=== PATIENT | male | born 1965 | race Caucasian/White ===

== ENCOUNTER 2016-04-22 08:41 | Emergency (ER) | payer OTHER ==
[~2016-04-22] VITALS: Ht 172.7 cm; Wt 77.3 kg
--- NOTE | 2016-04-22 09:14 | ED.REPORT ---
HPI-General Illness Date of Service Apr 22, 2016 ED Provider: Carol Ann Wolfe MD 50 y/o male with history of hypertension and coronary artery disease s/p coronary stents reports to the ED with tingling in his left arm and lightheadedness onset 2 days ago. Pt reports working outdoors and being light- headed most of yesterday. Pt's recorded his blood pressure at 88/48 and 88/ 52 yesterday. Pt was previously prescribed medications for hypertension, but his manufacturing process engineer recommended that he stop taking these. He is not currently on medications for BP. Pt currently takes Lipitor and baby aspirin. Pt denies fever , cough, chest pain, SOB or edema. Pt describes his symptom as being similar to a previous heart attack. Nursing Notes Stated Complaint: LIGHT HEADED, TINGLING IN LEFT HAND Chief Complaint: Dysrhythmia/Cardiac Nursing Notes Reviewed: Yes Allergies: Coded Allergies: Penicillins (Verified Allergy, Intermediate, 04/22/16) General Time Seen by MD: 09:12 Chief Complaint Dizziness Hx Obtained From: Patient, Spouse Arrived By: Walk-in Onset Occurred: 2 days ago Symptom Duration: Since onset Severity: Current: No pain currently Associated with: Denies: Chest pain, Shortness of breath Pertinent Negative: Relieved by nothing Similar Sx Previous: Yes Past Medical History Past Medical History Reports: Coronary artery disease, Hyperlipidemia, Hypertension Past Surgical History Reports: Angioplasty Smoking History Light Tobacco Smoker Social History Alcohol Use: "Social" Other Social History: Review of Systems Full Review of Systems Constitutional: Denies: Chills, Fever Respiratory: Denies: Non-productive cough, Shortness of breath Cardiovascular: Denies: Chest pain, Edema Musculoskeletal: Denies: Extremity pain Neurologic: Reports: Dizziness, Lightheaded, Numbness Complete sys rev & neg: except as marked. Physical Exam Vital Signs Vital Signs Date Time Temp Pulse Resp B/P Pulse Ox O2 Delivery O2 Flow Rate FiO2 04/22/16 10:25 57 15 113/73 99 Room Air Initial VS: Reviewed General/Constitutional: Well-developed, Well-nourished Head / Eyes: Atraumatic, Normocephalic, PERRL ENT: Mucous membranes moist, Conjunctiva normal, No scleral icterus Neck: Supple, Non-tender, Full range of motion Respiratory: Breath sounds normal, Clear to auscultation, No respiratory distress Cardiovascular: Regular rate & rhythm, Heart sounds normal, Intact distal pulses Abdomen / GI: Soft, Non-tender, No guarding, No rebound, No distention Extremities: Vascular intact, Neuro intact, No swelling, No tenderness Skin: Warm, Dry, No cyanosis Neurologic: Alert, Oriented, Nonfocal Psychiatric: Mood/affect normal, Behavior normal, Normal thought content Interpretation & Diagnostics Lab Results Interpretation Result Diagram: 04/22/16 0900 04/22/16 0900 Test 04/22/16 09:00 04/22/16 09:07 White Blood Count 9.0th/mm3 (3.8-10.1) Red Blood Count 4.78mil/mm3 (4.40-5.80) Hemoglobin 15.2g/dL (13.8-17.2) Hematocrit 45.2% (41.0-50.0) Mean Corpuscular Volume 94.6fL (81-100) Mean Corpuscular Hemoglobin 31.8pg (27.0-35.0) Mean Corpuscular Hemoglobin Concent 33.6% (32.0-37.0) Red Cell Distribution Width 12.0% (12.3-15.4) Platelet Count 196bil/L (150-400) Neutrophils (%) (Auto) 59.6% (40-74) Lymphocytes (%) (Auto) 30.6% (14-46) Monocytes (%) (Auto) 8.0% (4-12) Eosinophils (%) (Auto) 1.4% (0-5) Basophils (%) (Auto) 0.2% (0-3) Sodium Level 138mEq/L (134-144) Potassium Level 4.5mEq/L (3.5-5.2) Chloride Level 101mEq/L (97-108) Carbon Dioxide Level 25mmol/L (18-29) Blood Urea Nitrogen 12mg/dL (6-24) Creatinine 0.98mg/dL (0.76-1.27) Estimat Glomerular Filtration Rate 86mL/min (>59) Glucose Level 108mg/dL (60-99) Calcium Level 8.9mg/dL (8.5-10.1) Magnesium Level 2.1mg/dL (1.6-2.6) Total Bilirubin 0.5mg/dL (0.0-1.2) Aspartate Amino Transf (AST/SGOT) 26U/L (0-50) Alanine Aminotransferase (ALT/SGPT) 25U/L (0-44) Alkaline Phosphatase 64U/L (25-150) Troponin T < 0.010ug/L (0.0-0.011) Total Protein 7.7g/dL (6.4-8.4) Albumin 4.2g/dL (3.4-5.0) Hold Urine Received (Received) General Lab Results Interp 1: Labs reviewed ECG Interpretation Time: 09:05 Interpreted by: ED physician Normal ECG Interpretation: Normal rate (53), Normal sinus rhythm, No acute ischemic changes, Normal QRS, Normal axis, Normal intervals, No change from prior ECGs, Adequate tracing X-Ray Chest Interpretation Chest Xray Interpretation: IMPRESSION: No acute cardiopulmonary disease. Dictated by: Kobe Melgar M.D. on 04/22/2016 at 9:31 Approved by: Kobe Melgar M.D. on 04/22/2016 at 9:31 View: Portable, 1 view Interpretation / Wet Read by: Interpret - Radiologist Re-Eval/Medical Decision Time of Eval: 10:19 Patient Status: Condition unchanged Re-Evaluation/Progress Note: Pt resting comfortably. Updated pt of labs, ECG and imaging results. Discussed plan for discharge and follow up. All questions addressed. Counseled Regarding: Diagnosis, Lab results, Need for follow-up, When/why to return to ED Discharge & Departure Primary Impression: Hypotension Hypotension type: unspecified hypotension type Qualified Code: I95.9 - Hypotension, unspecified Additional Impression: Hand tingling Laterality: left Qualified Code: R20.2 - Paresthesia of skin Ruled Out: STEMI (ST elevation myocardial infarction), Acute coronary syndrome , Pneumonia, Sepsis Disposition: Home Discharge Condition All VS Reviewed: Yes Condition: Stable Thank you for coming in for evaluation today. Low blood pressure yesterday and the hand tingling it makes sense to be safe. Fortunately there is no evidence of recurrent heart issues today Low blood pressure yesterday likely was related to activity and mild dehydration, please try to drink more fluids. The hand tingling likely is related to work and cold. If you have more concerns, worsening symptoms or change in fatigue or dizziness symptoms please return for additional evaluation Referrals: Sonia Lockhart PAC (PCP) Scribe Attestation Portions of this note were transcribed by Good Suarez and Rochelle Mcnally. I, Dr. Wolfe personally performed the history, physical exam and medical decision -making; I reviewed and confirmed the accuracy of the information in the transcribed note. Signed by: Cindy Santo, [04/22/16] and [[id number]]. copies to: Sonia Lockhart Shawna L MD Apr 22, 2016 09:13 Good Suarez Apr 22, 2016 09:32 Rochelle Mcnally Apr 22, 2016 10:46
[2016-04-22 09:18] LABS: BASOPHILS % (AUTO) 0.2 % (0-3); EOSINOPHILS % (AUTO) 1.4 % (0-5); Mean Corpuscular Hemoglobin 31.8 pg (27.0-35.0); Mean Corpuscular Volume 94.6 fL (81-100); NEUTROPHILS % (AUTO) 59.6 % (40-74); Platelet Count 196 bil/L (150-400)
--- NOTE | 2016-04-22 09:32 | DRSVH ---
PROCEDURE: X-RAY CHEST ONE VIEW, PORTABLE ([id number]) INDICATIONS: 50 year-old male with chest pain. TECHNIQUE: One view of the chest was acquired. COMPARISON: [facility], CR, CHEST 1VW (PORTABLE), 07/08/2013, 19:43. [facility], CR, CHEST 2VW, 07/01/2010, 8:30. FINDINGS: Surgical changes and devices: None. Lungs and pleura: No pleural effusions or pneumothorax. Lungs are clear. Mediastinum: Mediastinal contours appear normal. Heart size is normal. Bones and chest wall: No suspicious bony lesions. Overlying soft tissues appear unremarkable. IMPRESSION: No acute cardiopulmonary disease. Dictated by: Kobe Melgar M.D. on 04/22/2016 at 9:31 Approved by: Kobe Melgar M.D. on 04/22/2016 at 9:31
[2016-04-22 09:56] LABS: Magnesium 2.1 mg/dL (1.6-2.6)
[2016-04-22 10:02] LABS: TROPONIN T < 0.010 ug/L (0.0-0.011)
[2016-04-22 10:25] VITALS: BP 113/73; PULSE 57; RESP 15; O2SAT 99
== END 2016-04-22 10:26 | disposition home or self-care (01) ==
LOC: SED 08:41
DX: I95.9 Hypotension, unspecified (principal); R20.2 Paresthesia of skin; R42 Dizziness and giddiness; I10 Essential (primary) hypertension; I25.10 Atherosclerotic heart disease of native coronary artery without angina pectoris; E78.5 Hyperlipidemia, unspecified; F17.200 Nicotine dependence, unspecified, uncomplicated; Z88.0 Allergy status to penicillin